=== PATIENT | female | born 1960 | race Caucasian/White ===

== ENCOUNTER → 2023-10-18 09:20 | Outpatient (REF) | payer BC, SELFPAY | LOC: HWRAD 09:20 | PROVIDERS: ATTENDING PHYSICIAN Specialist; FAMILY PHYSICIAN Internal Medicine | DX: R22.42 Localized swelling, mass and lump, left lower limb (principal); R22.41 Localized swelling, mass and lump, right lower limb | CPT/HCPCS: 76882 ==

== ENCOUNTER 2024-01-03 07:41 | Emergency (ER) | payer BC, SELFPAY ==
[2024-01-03 07:42] VITALS: BP 128/51
[2024-01-03 08:29] VITALS: BMI 31.5
[2024-01-03 08:38] VITALS: BP 105/73
[2024-01-03 08:54] LABS: % Basophils 0.6 % (0-2); % Eosinophils 0.7 % (0-6); % Immature Granulocytes 0.3 % (0-0.5); % Lymphocytes 16.9 % (20.5-51.1); % Monocytes 7.7 % (1.7-9.3); % Neutrophils 73.8 % (42.2-75.2); Absolute Eosinophils 0.1 10^3/uL (0-0.7); Absolute Lymphocytes 1.2 10^3/uL (1.2-3.4); Absolute Monocytes 0.6 10^3/uL (0.1-0.6); Absolute Neutrophils 5.3 10^3/uL (1.4-6.5); Hematocrit 40.2 % (37.0-47.0); Hemoglobin 13.9 g/dL (12.0-16.0); Mean Corp Hgb Conc. 34.6 g/dL (33.0-37.0); Mean Corpuscular Hgb 31.2 pg (27.0-31.0); Mean Corpuscular Volume 90.1 fL (81.0-99.0); Mean Platelet Volume 11.3 fL (7.4-10.4); Nucleated Red Blood Cells % 0 %; Platelet Count 228 10^3/uL (130-400); Red Blood Cell Count 4.46 10^6/uL (4.20-5.40); Red Cell Dist. Width 12.7 % (11.5-14.5); White Blood Cell Count 7.2 10^3/uL (4.8-10.8)
[2024-01-03 09:08] LABS: ALT (SGPT) 16 U/L (0-35); AST (SGOT) 23 U/L (14-36); Albumin 4.5 g/dl (3.5-5.0); Alkaline Phosphatase 73 U/L (38-126); Blood Urea Nitrogen 17 mg/dl (7-17); Carbon Dioxide 23 mmol/L (22-30); Chloride 103 mmol/L (98-107); Estimated Creatinine Clearance 80 ml/min; Glucose 89 mg/dl (70-99); Potassium 4.2 mmol/L (3.5-5.1); Sodium 141 mmol/L (135-145); Total Bilirubin 1.1 mg/dl (0.2-1.3); Total Protein 7.2 g/dl (6.3-8.2); eGFR > 60.00
--- NOTE | 2024-01-03 09:40 | ED.GENMED ---
History of Present Illness
General
Chief Complaint: Bowel Problem
Source: patient
Exam Limitations: none
Time Seen by Provider: 01/03/24 08:04
Nursing documentation reviewed up to this point in time: agreed with
History of Present Illness
History of Present Illness:
63-year-old female past medical history of GERD, esophageal issues presenting to the emergency department today with concerns of worsening constipation over the past few days. She tried taking mag citrate which did not improve symptoms. She has
had progressing worsening nausea and episode of vomiting yesterday. She claims that her abdomen is becoming more painful over the past 24 hours. Denies any fevers chest chest pain shortness of breath. Has had multiple C-sections denies additional
abdominal surgeries. No history of bowel obstructions.
Past History
Past History
ED Past Medical History: GERD (Hiatal hernia, esophagitis) and Other (Anemia related to menometrorrhagia. Hospitalization October 2010 for treatment of symptomatic anemia related to DUB. Hemoglobin 5.7 at that admission. Patient received packed red
blood cells as well as IV iron.)
ED Past Surgical History: and Gynecological (D. and E.)
Social History
Tobacco: Former smoker
Alcohol: None
Personal:
Living: with family
Employment: Employed
Family History
Family History: CAD (father)
Review of Systems
Review of Systems
Allergies reviewed?: Yes
All Other Systems: ROS reviewed and negative except as documented in HPI and ROS
Phy Exam
Physical Exam
Physical Exam:
GENERAL: Alert , in no apparent distress
EYE: pupils equal and reactive
NECK: Supple, no significant adenopathy.
ENT: o/p clr, mmm.
CARDIAC: Regular rate and rhythm .
LUNGS: Clear breath sounds bilaterally, no acute respiratory distress, no wheezes/rales/rhonchi
ABDOMEN: Semirigid abdomen. Mild tenderness palpation mainly to the right lower quadrant left lower quadrant otherwise upper abdomen without tenderness. no r/g, no cvat
NEUROLOGICAL: Alert and oriented, no focal neuro deficits
SKIN: Warm and dry, skin intact.
MUSCULOSKELETAL: No edema, well perfused.
PSYCH: Normal and appropriate interaction.
Course
Orders/Labs/Results
Orders:
Orders
01/03/24 08:31
CT Abd/Pel (IV only)-DH only Urgent
Comment:
Reason For Exam: lower abd pain bilateral, decreasing BM's
01/03/24 08:45
CA 125 Urgent
Comment: ADD ON
CEA Urgent
Comment: ADD ON
Complete Blood Count/With Diff Urgent
Comprehensive Metabolic Panel Urgent
Lipase Urgent
01/03/24 10:20
US Pelvis W Transvag Combined Urgent
Reason For Exam: pelvic mass
01/03/24 10:31
0.9% Sodium Chloride 1000 ml [Nss] 1,000 ml IV BOLUS
01/03/24 12:38
Urinalysis Reflex To Culture Urgent
Date Specimen was Collected: 01/03/24
Time Specimen was Collected: 12:37
01/03/24 14:24
Add On- LAB Urgent
Tests Added?: CEA, CA125, CA19-9
01/03/24 14:45
CA 19-9 [S] Urgent
Abnormal Lab Results
01/03/24 01/03/24
08:45 12:38
MCH 31.2 H pg
(27.0-31.0)
MPV 11.3 H fL
(7.4-10.4)
Lymphocytes % 16.9 L %
(20.5-51.1)
Urine Ketones 3+ A
(Negative)
01/03/24 08:45
01/03/24 08:45
Vital Signs
Initial and Last Documented VS:
Initial Vital Signs
Temp Pulse Resp BP Pulse Ox
98.1 F 81 18 128/51 100
01/03/24 07:42 01/03/24 07:42 01/03/24 07:42 01/03/24 07:42 01/03/24 07:42
Last Documented Vital Signs
Temp Pulse Resp BP Pulse Ox
98.1 F 74 18 115/68 98
01/03/24 07:42 01/03/24 14:37 01/03/24 14:37 01/03/24 14:37 01/03/24 14:37
MDM/Problems Addressed
MDM/Problems Addressed:
63-year-old female presenting to the emergency department today with concerns of constipation worsening over the past few days with now developing nausea and abdominal pain. Here vital signs are normal patient does have discomfort is reproducible
to the abdomen plan for CT scan to rule out bowel obstruction. CT scan showing pelvic mass originating from the ovary described as possible cystadenoma or cyst adenocarcinoma. Case initially discussed with gynecology oncology and recommended
speaking with gynecology. Ultrasound was ordered for further assessment. Gynecology saw the patient and recommended gynecology oncology to take the case moving forward with concerns of potential cancerous process. She was stable throughout the ER
stay appear to be stable for outpatient close follow-up for further management of this. Return precautions were given.
*Critical Care Note
Total Time (30-74mins, 75-104mins- exclusive of procedures): Not Applicable
ED Attending Note
-
Portions of this chart may have been created with voice recognition software.� Occasional wrong word or��sound alike� substitutions may have occurred due to the inherent limitations of voice recognition software.
Discharge Plan
Departure
Patient Disposition: Home (Routine Discharge)
Date of Disposition: 01/03/24
Time of Disposition: 15:02
Patient with high blood pressure during this ER visit?: No
Condition: Good
Covid-19: Not Applicable
Discharge Problem:
Mass of ovary
Instructions: Ovarian Cancer (DC)
Prescriptions:
New
docusate sodium [Colace] 100 mg capsule
100 mg PO DAILY Qty: 14 0RF
No Action
No Meds [No Current Medications]
0
Referrals:
Tk Lynn MD [Family Provider] -
Steve Mckay MD [Active] - Follow up in 5-7 days
Activity Restrictions/Additional Instructions:
You came to the emergency department today with concerns of abdominal symptoms. You are found to have a significant ovarian mass. You will need to follow-up closely with the gynecology oncology physician. Return to the emergency department for
any worsening, new or concerning symptoms.
Interventions
Interventions:
*Risk Screen - Suicide Last Done: 01/03/24 07:42
*General Assessment Last Done: 01/03/24 07:42
*Neglect/Abuse Screening Last Done: 01/03/24 07:42
ED- Fall Risk Assessment Last Done: 01/03/24 08:29
*ED COVID-19 Vaccine History Last Done: 01/03/24 08:32
QB-Vojkyh-Kysdkjeanz Assessment Last Done: 01/03/24 08:29
Discharge Date and Time
Print Language: CZECH
[2024-01-03 09:55] LABS: Lipase 110 U/L (23-300)
[2024-01-03 10:00] VITALS: BP 104/65
[2024-01-03] MEDS: NSS 1000 IV (10:41)
[2024-01-03 11:03] VITALS: BP 111/72
[2024-01-03 12:42] VITALS: BP 115/66
[2024-01-03 13:02] LABS: Urine Albumin Negative (Neg - Trace); Urine Bilirubin Negative (Negative); Urine Character Clear (Clear); Urine Color Yellow; Urine Glucose Negative (Negative); Urine Ketone 3+ (Negative); Urine Leukocyte Negative (Negative); Urine Nitrite Negative (Negative); Urine Occult Blood Negative (Negative); Urine Urobilinogen Negative (Neg - 1+)
--- NOTE | 2024-01-03 14:36 | CON.MD ---
Consultation - Medical
-
Consult: ovarian cyst
HPI: Patient is a 63yo who presents to the ED for worsening abdominal pain and constipation since Monday. Patient reports she has been taking Mounjaro for the last 2 years and takes mag O7 every night since she heard it can cause
constipation. She missed a couple days of it when she was on vacation so she thought it was related to that. She has also been having abdominal pain and back pain that are worse when she is standing. She says the pain goes away when she is laying
down. She took mag citrate a couple days ago and had a watery bowel movement last night. She has not been eating over the last 2 days and had one episode of vomiting last night. Over the last 2 years, she has lost weight on Mounjaro but stopped
losing weight over the last couple months. She has noticed that her abdomen is not getting smaller, but was not aware of the cyst. She has not seen a regular UPPER CUTTER MACHINE in over 20 years.
ROS negative unless otherwise noted in the HPI
PMHx: PCOS, reflux, preDM
Meds: omeprazole, Mounjaro, Marilin, multivitamins, mag O7
Surghx: CSx3, cosmetic eye surgery
NKDA
Socialhx: quit smoking 20yrs ago, occas etoh, denies illicit drug use
Famhx: denies UPPER CUTTER MACHINE cancers
OBHx: , FT CSx3
Gynhx: menopause at age 52, denies PMB, denies hx abnormal Paps or STDs
O:
BP 115/68, HR 74, RR 18
General: well appearing, no acute distress
Cardio: RRR
Pulm: no increased work of breathing
Abd: soft, non tender, large ovarian cyst on right side of abdomen extending to below the rib cage
Psych: appropriate affect
CTAP: Predominantly cystic septated mass likely arising from the true pelvis extending into the right abdomen measuring 21.5 cm in greatest dimension, most likely of ovarian origin. Most likely differential diagnostic possibilities would be ovarian
cystadenoma or cystadenocarcinoma
Pelvic US:
The uterus is somewhat retropositioned measuring 5.6 x 3.3 x 4.3 cm without focal mass. The endometrium appears predominantly homogeneous measuring 0.7 cm with tiny endometrial cyst measuring 0.16 cm along the lower uterine segment
23 cm complex cystic lesion likely originating from the right ovary extending from the true pelvis into the right abdomen with internal septations. Most likely differential diagnostic possibility would be an ovarian cystadenoma or cystadenocarcinoma
A/P: Patient is a 63yo who presented to the ED w/ abdominal pain and constipation, found to have a large right ovarian cyst
- Pelvic US and CT scan reviewed. 23cm complex cystic lesion originating from the right ovary extending from the true pelvis into the right abdomen with internal septations
- Patient does not have a surgical abdomen and there is no evidence of a bowel obstruction. No acute surgical intervention indicated.
- Case discussed with Dr. Mckay and he feels that the cyst is likely benign. Tumor markers were added onto the labs in the ED. He is happy to have the patient follow up with him outpatient or co-case with general UPPER CUTTER MACHINE.
- Patient would like to have surgery within the next day or 2. Long discussion had with patient that while she is having some pain, she does not have a surgical abdomen and there is no evidence of bowel obstruction on imaging with no indication for
emergent or urgent surgery. Offered patient admission for observation for pain control and monitoring for bowel symptoms vs going home and patient desires to go home.
- She has not seen a UPPER CUTTER MACHINE in over 20yrs and needs routine UPP[employer] C[employer]TER [employer]INE follow up. Patient given information to follow up in the office for routine care and also given information to follow up with Dr. Mckay
- She was given strict ED return precautions and all questions were answered
45 minutes spent with patient, reviewing chart and coordinating care.
[2024-01-03 14:37] VITALS: BP 115/68
[2024-01-03 16:36] LABS: CEA 1.14 ng/ml
[2024-01-04 19:12] LABS: CA 125 94.4 U/mL (0-35)
[2024-01-05 22:13] LABS: CA 19-9 4 U/mL (<=35)
== END 2024-01-03 15:13 | disposition home or self-care (01) ==
LOC: EMR 07:41
PROVIDERS: Physician Assistant; EMERGENCY PHYSICIAN Emergency Medicine; FAMILY PHYSICIAN Family Medicine; OTHER PHYSICIAN Student in an Organized Health Care Education/Training Program
DX: N83.9 Noninflammatory disorder of ovary, fallopian tube and broad ligament, unspecified (principal); R10.30 Lower abdominal pain, unspecified; R11.2 Nausea with vomiting, unspecified; N83.201 Unspecified ovarian cyst, right side; K59.00 Constipation, unspecified; M54.9 Dorsalgia, unspecified; K21.00 Gastro-esophageal reflux disease with esophagitis, without bleeding; K44.9 Diaphragmatic hernia without obstruction or gangrene; D64.9 Anemia, unspecified; Z87.891 Personal history of nicotine dependence
CPT/HCPCS: 99285; 96360; 74177; 76830; 76856; 80053; 81003; 82378; 83690; 85025; 86301; 86304; Q9967

== ENCOUNTER 2024-01-30 07:06 | Day surgery (SDC) | payer BC, SELFPAY ==
[2024-01-19 09:20] VITALS: BMI 32.5
--- NOTE | 2024-01-28 20:01 | W.CON.GYNONC ---
Chief Complaint
-
pelvic mass
History of Present Illness
63�year�old�G3�P3�0�0�3�white�female�was�presented�to�the�emergency�room�last�week�complaining�of�of�abdominal�pain�and constipation.�Past�medical�history�significant�for�polycystic�ovarian�disease�prediabetes�and�gastroesophageal�reflux.�She�had
taken�magnesium�citrate�a�couple�days�before�her�bowel�movements.�Has�lost�weight�on�Mounjaro�but�stopped�losing�weight�over the�past�couple�months.�Patient�has�not�seen�a�weir fisher�in�over�20�years.
Ultrasound�of�pelvis�performed�in�ER�shows�uterus�5.6�x�3.53�cm,�endometrium�is�about�7�mm�with�tiny�endometrial�cysts.�Left
ovary�is�3.3�cm.�Right�ovary�25X10.7�x�23�cm�extending�into�the�right�abdomen.�There�is�internal�septations.�CT�of�abdomen�pelvis
included�lung�bases�which�are�normal,�there�is�no�adenopathy�or�ascites,�upper�abdomen�is�normal.�There�is�a�3�cm�peripherally calcified�lesion�lateral�margin.�Mass�is�redemonstrated�21�x�17�x�10.3�cm�arising�from�right�ovary. CEA�is�normal
CA125�is�93 Medications�include�omeprazole,�Flagyl,�multiple�vitamins Past�surgical�history�significant�for�3�prior�C�sections�and�cosmetic�eye�surgery There�is�no�family�history�of�PSYCHOLOGY PROFESSOR�or�breast�cancer
Menopause�at�age�52�denies�postmenopausal�bleeding. Patient�has�mammogram�last�year.�She�has�had�one�colonoscopy
Aller�Fex�180�mg�tablet 01/08/2024 0 1�p.o.�q.�day
docusate�sodium�100�mg�tablet 01/08/2024 0 1�p.o.�q.�day
Mage�15�billion�cell�15�mg�capsule,delayed release 01/08/2024 0 1�p.o.�twice�a�day (BID)
Mounjaro�15�mg/0.5�mL�subcutaneous�pen injector 01/08/2024 0 1�week
omeprazole�20�mg�tablet,delayed�release 01/08/2024 0 1�p.o.�q.�day
Medical History
Past Medical History
Past Medical History: Reports NIDDM
Additional Past Surgical History:
c�section�x�3
Allergies
Allergies reflect when allergies were last updated in [employer]
No Known Allergies Allergy (Verified 01/12/24 15:11)
Physical Exam
Physical Exam
Physical�Exam
Pelvic�Examination: External�normal�labia,�urethra,�anus.� Vagina:�Normal�mucosa.� Cervix:�normal�appearance,�no�discharge.�Pap�smear�was�collected Uterus:�normal�size.�
Adnexa:�I�am�unable�to�palpate�left�ovary,�right�ovary�appears�to�resolve�mostly�on�abdominal�examination,�fullness�is�appreciated across�the�entire�forehead�is�mobile. RVE:�no�masses�or�nodularity
General:�Well�developed,�well�nourished�patient.�In�no�acute�distress. Neck:�No�thyromegaly.�No�cervical�lymphadenopathy.
Lungs:�Clear�to�auscultation.�Good�air�movement�bilaterally.
Cardiac:�Regular�rate.�Regular�rhythm.�No�murmurs�appreciated.
Right�Breast:�No�masses�or�dimpling.�No�nipple�discharge. Left�Breast:�No�masses�or�dimpling.�No�nipple�discharge. Abdomen:�Abdomen�is�soft.�Non�tender�to�palpation.Distension�present.Mass�palpated:�right.
Extremities:�No�edema. Hematologic/Lymphatic:�No�palpable�lymphadenopathy. Musculoskeletal:�Normal�range�of�motion.�Strength�and�Tone�are�normal.
Skin:Non�jaundiced.�No�petechia.�No�purpura.
Neurologic:�Speech�is�fluent.�Normal�gait�and�station.�Cranial�nerves�intact.
Impression / Plan
-
Patient�has�large�mass�arising�from�right�ovary,�mostly�cystic�with�a�few�septations.�Her�CA125�is�elevated�likely�due�to�torsion�or
inflammation.�I�do�not�see�any�obvious�solid�or�vascular�component�within�the�mass�on�ultrasound�exam.�My�recommendation�is surgery.�As�part�of�evaluation�today�Pap�smear�was�performed.�Surgery�can be�accomplished�both�as�open�versus�minimally
invasive.�
I�do�recommend�robotic�assisted�exploration�of�the�abdomen,�careful�and�secure�aspiration�of�the�mass�to�decrease�the size�about�proceeding
Total�laparoscopic�hysterectomy�bilateral�salpingo�oophorectomy.�Specimens�will�be�extracted�through�the�vagina.,�Frozen�section
will�be�done�at�the�pending�pathology�additional�procedures�including�omentectomy�pelvic�and�aortic�lymph�node�dissection�multiple peritoneal�biopsies,�comprehensive�staging.�The�patient�understands�that�the�procedure�may�be�converted�to�open.�
Risks including infection bleeding injury to adjacent organs DVT, pulmonary embolism, cardiovascular complications. I am recommending the
patient is seen by her primary care physician for medical clearance. We discussed preoperative and postoperative recovery.
[2024-01-30] VITALS (11 sets, daily range): BP systolic 106–127; BP diastolic 58–70; BMI 32.5
[2024-01-30 09:21] LABS: Glucose - Point of Care 92 mg/dl (70-99)
[2024-01-30] MEDS: NEURONTIN 300 MG PO (09:32)
[2024-01-30] MEDS: CELEBREX 200 MG PO (09:32)
[2024-01-30] MEDS: TYLENOL 1000 MG PO (09:32)
[2024-01-30] MEDS: HEPARIN 5000 UNITS SC (09:33)
[2024-01-30] MEDS: DILAUDID 0.5 MG IV ×2 (12:57→13:29)
--- NOTE | 2024-01-30 17:13 | OR.RPT ---
Operative Report
Operative Report
Date of procedure: January 30, 2024
Preoperative diagnosis: left lower quadrant pelvic mass, elevated CA125, left lower quadrant pain
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
Surgeon: Steve Mckay
Assist: Nirmal Dennis PA-C, MIGDALIA Hernadez
Anesthesia: General Endotracheal intubation
Procedures:
Robotic assisted total laparoscopic hysterectomy, bilateral salpingo-oophorectomy, omentectomy for cytoreduction 61315
Robotic assisted laparoscopic appendectomy 81429
Robotic assisted laparoscopic left pelvic lymphadenectomy 06901
TAP block
Estimated blood loss: 100 cc
Complication: None
Urine output: 300 cc
Procedure in detail: This patient was brought to the operating room for definitive management of recently diagnosed 21 cm pelvic mass initially evaluated January 03, 2024 in the emergency room at [facility]. Ultrasound evaluation revealed
that the cyst is septated but it does not have any significant solid components. CA125 was elevated at 76. Upon arrival to the operating room she was placed in supine position, general anesthesia was administered, she was placed in lithotomy
position, arms were wrapped with foam and placed along the patient's side, she was prepped on the abdomen perineum and vagina she was draped. Timeout procedure was carried out she received 2 g of Ancef and 500 mg of Flagyl. Fink catheter was
placed under sterile conditions in the bladder, cervix was identified, canal was dilated, uterine manipulator was placed with 2.5 cm ADRIANA ring. Vaginal occluder balloon was insufflated. Attention was turned abdominally. Veress needle was inserted
just below the left subcostal margin and insufflation with CO2 gas was performed to pressure of 15 mmHg. Next 8 mm robotic port was introduced approximately 25 cm cephalad to symphysis pubis into the peritoneal cavity, under direct visualization
additional excised robotic ports were placed in the right and left upper quadrants and left upper abdomen. Right lower quadrant port was a 12 mm air seal port. Visualization of the upper abdomen reveals right and left diaphragms to be within
normal limits peritoneal surfaces do not have any nodularity, omentum is unremarkable but does have adhesions to the anterior abdominal wall there is a large cystic mass probably arising from left ovary with 3 full twists on its axis. Tap block was
performed using combination of ropivacaine and Decadron 2 fingerbreadths below costal margins under direct visualization as well as lateral abdomen. We performed aspiration of the large cystic mass in 2 separate components under controlled fashion
without allowing spillage of clear fluid in the abdomen. Once this was completed the patient was placed in 28 degree Trendelenburg, robotic system was docked. I went ahead and sealed both round ligaments and opened the retroperitoneal spaces. The
course of the ureter was identified bilaterally. On the left side IP ligaments were sealed and divided attachment of the tube and ovary to the uterus was sealed and divided, the entire large left ovary was placed in a large endoscopic bag and
sealed for retrieval through vagina. Next bladder flap was sharply developed and advanced below the cervicovaginal junction. Right IP ligament was sealed and divided right tube and ovary was left attached to the uterus. Uterine arteries were
skeletonized. They were sealed bilaterally and divided uterosacral ligaments were sealed and divided circumferential incision was made over the ADRIANA ring until the entire uterus was detached. Uterus and cervix along with right tube and ovary was
removed through the vagina and submitted to pathology. We brought the bag containing the left ovary down to the level of the vagina and opened the bag externally I needed to drain some additional components of this mass and noted that there were
hemorrhagic and hemosiderin components within the bag suggestive of hemorrhage the left ovary was sent for frozen section. In the meantime I went ahead and performed the infracolic omentectomy of the omentum was removed and submitted to the vagina
to pathology. Multiple peritoneal surfaces were biopsies including anterior cul-de-sac posterior right cul-de-sac adhesions of the rectosigmoid as well as right and left pelvis and right and left paracolic gutters. I had some concern about the
possibility of malignancy and I examined the appendix. Mesoappendix was sealed and divided, Endo HERMINIA stapler was fired across the cecum at the base of the appendix using 45-2.5 mm stapler. Next the left pelvic lymphadenectomy was completed at this
point frozen section revealed that the cyst had 2 separate components, 1 component contained hemorrhagic contents and apparently benign the other component had serous neoplasm mostly of benign nature there is an area that has some atypia raising the
possibility of a serous borderline tumor although the focus is very small. Given the absence of irene malignancy I stopped and did not perform any additional lymph node dissection. We proceeded to close the cuff. The vaginal cuff was closed with
0 Vicryl suture ligature in a [id number] fashion incorporating uterosacral ligaments at both apices. I then used a V-Loc suture to close the vaginal cuff starting from right to left and back to the right side. We irrigated all operative
sites. The air seal port was removed and we used a Jase Tan system to close the fascia. 0 Vicryl suture was used for this. We irrigated the pelvis as well as subdiaphragmatic spaces and aspirated any residual fluid. We proceeded to remove
all instruments and undocked the robotic system. Skin incisions were closed with 4-0 Monocryl in a subcuticular fashion. Patient was awakened extubated and returned back to recovery room stable awake and extubated condition counts of laps
instruments and needle was correct x 2. I was present and scrubbed for entire procedure as dictated above.
Disposition: To PACU, extubated alert and awake
== END 2024-01-30 15:56 | disposition home or self-care (01) ==
LOC: SDS 07:06
PROVIDERS: ATTENDING PHYSICIAN Obstetrics & Gynecology Gynecologic Oncology; FAMILY PHYSICIAN Family Medicine
DX: N84.0 Polyp of corpus uteri (principal); N83.512 Torsion of left ovary and ovarian pedicle; R97.1 Elevated cancer antigen 125 [CA 125]
CPT/HCPCS: 38571; 44970; 38570; 58571; 88304; 88307; 88332; 36415; 82962; 86850; 86900; 86901; 88112; 88331; 93005

== ENCOUNTER → 2024-03-04 15:25 | Outpatient (REF) | payer BC, SELFPAY | LOC: HWWDC 15:25 | PROVIDERS: ATTENDING PHYSICIAN Family Medicine | DX: Z12.31 Encounter for screening mammogram for malignant neoplasm of breast (principal) | CPT/HCPCS: 77063; 77067 ==